=== PATIENT | female | born 1980 | race Asian ===

== ENCOUNTER 2024-01-27 06:17 | Day surgery (SDC) | payer BC ==
[2024-01-16 12:21] VITALS: BMI 31.6
[2024-01-27] MEDS ORDERED: PROPOFOL 40 ML ONE (07:42)
[2024-01-27] MEDS ORDERED: DEXAMETHASONE SOD PHOSPHATE 4 MG/1 ML VIAL ONE (07:42)
[2024-01-27] MEDS ORDERED: ceFAZolin SODIUM 1 GM VIAL ONE (07:42)
[2024-01-27] MEDS ORDERED: ONDANSETRON 4 MG/2 ML VIAL ONE (07:42)
[2024-01-27] MEDS ORDERED: MIDAZOLAM HCL 2 MG/2 ML SINGLE DOSE VIAL ONE (07:43)
[2024-01-27] MEDS ORDERED: LIDOCAINE HCL 2% (20ML MULTI-DOSE VIAL) ONE (07:48)
[2024-01-27] MEDS ORDERED: BUPIVACAINE HCL/PF 0.5% (5MG/ML) 10 ML VIAL ONE (08:43)
[2024-01-27] MEDS ORDERED: PHENYLEPHRINE HCL 10 MG/1 ML SINGLE DOSE VIAL ONE (08:47)
[2024-01-27] MEDS ORDERED: BACITRACIN ZINC 15 GM TUBE TOPICAL OINTMENT ONE (08:53)
[2024-01-27 09:29] VITALS: TEMP 97
[2024-01-27] MEDS ORDERED: oxyCODONE HCL 5 MG TABLET PO PRN ×4 (09:34→09:46)
[2024-01-27] MEDS ORDERED: ONDANSETRON 4 MG/2 ML VIAL IVPB PRN (09:46)
[2024-01-27] MEDS ORDERED: LACTATED RINGERS SOLUTION 1,000 ML IV SCH (10:00)
[2024-01-27 12:55] VITALS: BP 121/54; PULSE 74; RESP 18
== END 2024-01-27 09:55 | disposition home or self-care (01) ==
LOC: FASU 06:17
PROVIDERS: ATTEND Plastic Surgery
PROC: 0LB80ZZ Excision of Left Hand Tendon, Open Approach (ICD-10-PCS; principal; 2024-01-27 08:36)
DX: D49.2 Neoplasm of unspecified behavior of bone, soft tissue, and skin (principal)
CPT/HCPCS: 81025; 88305-TC